=== PATIENT | female | born 1940 | race Caucasian/White ===

== ENCOUNTER 2016-09-15 09:37 | Day surgery (SDC) | payer MEDICARE, OTHER ==
[~2016-09-15] VITALS: Ht 162.6 cm; Wt 69.0 kg
[~2016-09-15 09:37] MED LIST: ACET325T51 PO; ASPI81TA16 PO; CALC-682 PO; CHOL200035 PO; CITA20TA2 PO; CYAN1TAB42 PO; Cinnamon PO; FISH PO; GLU500 PO; INSU100C8 SQ; INSU100V7 SUBQ; LUTE10TA PO; SIMV40TA5 PO; Sodium Chloride LOK Flush 10 mL Syringe IV PRN; TRAM50TA2 PO; ZES5 PO; fentaNYL-PF 50 mCg/mL 2 mL Inj IVPUSH PRN
[2016-09-15 10:24] VITALS: BP 137/63; PULSE 70; RESP 16; O2SAT 96
[2016-09-15] MEDS ORDERED: LISI-571 PO (10:30)
[2016-09-15] MEDS ORDERED: CITA20TA11 PO (10:30)
[2016-09-15] MEDS ORDERED: METF-496 PO (10:30)
[2016-09-15] MEDS ORDERED: ASPI-973 PO (10:30)
[2016-09-15] MEDS ORDERED: INSU100I (10:30)
[2016-09-15] MEDS ORDERED: LUTE20TA PO (10:30)
[2016-09-15] MEDS ORDERED: SIMV40TA5 PO (10:30)
[2016-09-15] MEDS: 0.9% Sodium Chloride 1,000 ML IV SCH ×2 (11:42→11:56)
[2016-09-15 12:05] VITALS: BP 124/69; PULSE 71; RESP 15; O2SAT 91
[2016-09-15 12:15] VITALS: BP 120/63; PULSE 68; RESP 14; O2SAT 92
[2016-09-15 12:22] VITALS: BP 110/63; PULSE 77; RESP 14; O2SAT 94
--- NOTE | 2016-09-15 21:52 | ENDO ---
[address] [address] ENDOSCOPY PROCEDURE PATIENT: AKASH ROMAN : 1940 MR#: [id number] ADMIT: 09/15/2016 JOB ID: [id number] PROCEDURE: Colonoscopy. INDICATIONS: Screening. The patient's ASA classification is 2. Mallampati score is 2. MEDICATIONS: 1. Versed 4 mg. 2. Fentanyl 75 mcg. INSTRUMENT USED: PCF H 180 AL. PREPARATION QUALITY: Good. PROCEDURE DETAILS: After informed consent was obtained, the patient was brought to the GI suite, where she was placed on oxygen via nasal cannula and monitored with continuous pulse oximeter, telemetry, and blood pressure monitoring. A time-out was performed. Then, she was placed in the left lateral decubitus position and medications were administered for sedation. A digital rectal exam was performed which was unremarkable. The colonoscope was then inserted into the rectum and advanced under direct visualization to the cecum, which was identified by the presence of the ileocecal valve and appendiceal orifice. Once the cecum was reached, the colonoscope was withdrawn back into the rectum. Mucosa and lumen were examined. In the rectum, retroflexion was performed. Following retroflexion, remaining air in the rectum was suctioned, and procedure was completed. FINDINGS: Normal exam from rectum to cecum. IMPRESSION: Normal colonoscopy. RECOMMENDATIONS: Repeat colonoscopy in 10 years, sooner if symptoms should dictate. COMPLICATIONS: None. ESTIMATED BLOOD LOSS: 0.
== END 2016-09-15 23:59 | disposition home or self-care (01) ==
LOC: END 09:37
PROVIDERS: ATTEND Internal Medicine Gastroenterology
DX: Z12.11 Encounter for screening for malignant neoplasm of colon (principal); E11.9 Type 2 diabetes mellitus without complications; Z79.4 Long term (current) use of insulin; G89.29 Other chronic pain; M54.5 Low back pain; Z79.82 Long term (current) use of aspirin
CPT/HCPCS: G0121; G0500; J2250; J3010; J7030